=== PATIENT | male | born 1985 | race Caucasian/White ===

== ENCOUNTER → 2019-05-03 | Outpatient (CLI) | payer OTHER ==
[~2019-05-03] MED LIST: ATOM18CA PO; OMEP20TA63 PO; blood pressure med
--- NOTE | 2019-05-04 04:09 | PAIN ---
DATE OF SERVICE: 05/03/2019 INITIAL CONSULTATION FOR PAIN CLINIC CHIEF COMPLAINT: Low back and right lower extremity pain. HISTORY OF PRESENT ILLNESS: This is a 33-year-old male who presents with history of pain for many years, about 10 years or so or longer low back pain into the right lower extremity, on and off in intensity, but worse over the past year or so. The patient has been active in duty and reports this has exacerbated the pain, but no specific injury or action that he is aware of. He does train the dogs and handles them, some large, sometimes he reports they will jump on him and knock him down, etc. Over the years, this is becoming much worse in the low back and the lower extremities, especially on the right side. 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 The patient is taking tramadol, which he reports has not significantly decreased the pain. He reports the pain awakens him from sleep at least once or twice a night. It does not affect his bowel or bladder control, but does affect his ability to walk, with some significant fatigability with the right leg, but no loss of motor function. The patient reports the pain is constant, sharp, stabbing in the low back, shooting in the leg, radiating into the right leg, posterior gluteus, posterior thigh, posterior calf, also some aching and some tingling in the right foot, but also some tingling in the left foot. The patient reports no loss of motor function, but significant discomfort with change in positions, walking and standing. Disability rating from 0-10, 10 being the worst, the patient rates his disability as a 5 with family and home responsibilities, social activity and self-care; 7 with recreational activities and occupation and sexual behavior and 0 with life-support activities. The patient did have MRI scan from 2013, showing some degenerative changes and bulging of disk at L4-L5 and L5-S1. No further recent MRIs or diagnostic studies have been performed by his report. PAST MEDICAL HISTORY: Significant for hypertension, arthritis and gastroesophageal reflux. PAST SURGICAL HISTORY: Previous surgeries include foot surgery 3 months ago for left plantar fasciitis. Otherwise, no previous surgeries. CURRENT MEDICATIONS: Include Strattera and Prilosec. ALLERGIES: The patient has no known drug allergies. FAMILY HISTORY: Significant for no major medical problems or conditions that he lists. SOCIAL HISTORY: The patient drinks alcohol once or twice a month. He does not smoke. He does not use any illegal, illicit or recreational drugs. 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 REVIEW OF SYSTEMS: The patient's review of systems is positive for those items mentioned in the history of present illness. All systems reviewed and otherwise negative. It is complete, full and well documented on the patient's chart. PHYSICAL EXAMINATION: VITAL SIGNS: The patient's blood pressure is 144/95, pulse 88, respirations 16 and temperature is 98.1 degrees Fahrenheit. Height is 71 inches, weight is 230 pounds. GENERAL: The patient is awake, alert, oriented, appropriate, very pleasant demeanor. HEENT: Exam shows normocephalic, atraumatic. Extraocular movements are intact and symmetrical. Oral cavity: Mucous membranes are moist and pink. Dentition is intact. NECK: Shows anterior throat supple, without palpable lymphadenopathy noted. Swallow reflex is symmetrical. CHEST: Shows normal on inspection. Breath sounds are clear to auscultation bilaterally. HEART: Shows S1, S2 clear. No murmurs auscultated. ABDOMEN: Soft, nontender and nondistended. No palpable organomegaly is noted. No rebound or guarding demonstrated. BACK: Shows spine grossly in the midline. Normal-appearing thoracic kyphosis, cervical lordotic curvature and thoracic kyphotic curvature. Lumbar lordotic curvature is normal in appearance. With palpation, it shows some moderate tenderness diffusely in the lumbar paraspinous musculature, which is symmetrical on inspection. No trigger points, no radiation, no difficulty with deep palpation, but significant tenderness in the right greater than the left lower lumbar paraspinous muscles. No tenderness over the spinous processes, sacrum or sacroiliac regions. The patient has good rotational motion of the lumbar spine, both laterally greater than 10 degrees right and left as well as extension greater than 10 degrees, forward flexion 45 degrees, without significant difficulty or pain reported. EXTREMITIES: The patient's lower extremities show deep tendon reflexes 2+ in the patellar, 1+ tendo-calcaneus tendons. Motor exam is strong with 5/5 dorsiflexion, extension, quadriceps and hamstring flexion. Peripheral pulses are 1+ posterior tibia. No peripheral edema is noted. Gaenslen's and Vinod's maneuvers are negative bilaterally. He has a slight positive straight leg raise on the right, but only about 40-45 degrees, with decreased knee flexion; left side is negative. The patient is able to stand, stand on his toes without difficulty or loss of balance, walking with a normal-appearing gait. He does not appear to favor the right or left lower extremity significantly, not using any assistive devices to ambulate. SKIN: Shows warm and dry, good turgor. No edema. No sores, rashes or bruising. He does have some tattooing on the bilateral upper extremities. IMPRESSION: 1. This is a 33-year-old male with approximately 10-year history of low back and right lower extremity pain, worse over the past year. 2. Old MRI scan showing degenerative disk disease as noted. 3. Hypertension. 4. Arthritis. 5. Gastroesophageal reflux. PLAN: Options were discussed with the patient, including conservative medical management, physical therapies and interventional techniques. As he has done the physical therapies and is currently doing exercises, he would like to pursue interventional techniques. We discussed the lumbar epidural steroid injection using description as well as anatomical models to describe the procedure. He will first wait for preauthorization with his insurance provider. Meantime, we will continue with stretching and strengthening exercises. We will have him return to the clinic in approximately 1 week and plan on lumbar epidural steroid injection at that time. OLIVIER TIERNEY MD DR: BLAKE/alise JOB#: [id number] / [id number]
== END | disposition home or self-care (01) ==
LOC: PNCL 10:36
PROVIDERS: ATTEND Anesthesiology
DX: M54.5 Low back pain (principal); M79.604 Pain in right leg; I10 Essential (primary) hypertension; M19.90 Unspecified osteoarthritis, unspecified site; K21.9 Gastro-esophageal reflux disease without esophagitis; Z79.899 Other long term (current) drug therapy
CPT/HCPCS: G0463

== ENCOUNTER → 2019-05-15 | Outpatient (CLI) | payer OTHER ==
[~2019-05-15] MED LIST changes: +IOHEXOL 180 MG/ML 10 ML VIAL. ONE; +methylPREDNISolone ACETATE 40 MG/ML VIAL. ONE; +methylPREDNISolone ACETATE 80 MG/ML VIAL. ONE
--- NOTE | 2019-05-15 10:54 | PN ---
DATE: 05/15/2019 PROGRESS NOTE FOR PAIN CLINIC DIAGNOSES: Lumbar radiculopathy with lumbar degenerative disc disease. HISTORY OF PRESENT ILLNESS: The patient is a 33-year-old male who returns for followup status post initial evaluation and preauthorization for lumbar epidural steroid injection. The patient has obtained that and they would like to proceed. The patient reports no significant change, still pain in the low back as well as into the right lower extremity, posterior gluteus, posterior thigh and calf. The patient reports it is aching, sharp, tight, shooting, rated at 8 on a scale of 10, at its worst over the past week, 4 on average, 2 at its least and is at 4 today. The patient reports no new motor or sensory deficits, no new bowel or bladder incontinence and that has been waking him from sleep at night. PHYSICAL EXAMINATION: VITAL SIGNS: The patient's blood pressure 154/105, pulse 93, respirations 16, temperature is 98.0 degrees Fahrenheit, height is 71 inches and weight is 231 pounds. GENERAL: The patient is awake, alert, oriented, appropriate, very pleasant demeanor. HEENT: Shows normocephalic, atraumatic. Extraocular movements are intact and symmetrical. Oral cavity: Mucous membranes are moist and pink. Dentition is intact. NECK: Shows anterior throat supple without palpable lymphadenopathy noted. Swallow reflex is symmetrical. CHEST: Shows normal on inspection. Breath sounds are clear to auscultation bilaterally. HEART: Shows S1, S2 clear. No murmurs auscultated. ABDOMEN: Soft, nontender, nondistended. No palpable organomegaly is noted. No rebound or guarding demonstrated. BACK: Shows spine grossly in the midline. Normal appearing thoracic kyphosis and minor flattening of lumbar lordotic curvature. Lumbar paraspinous muscles shows symmetrical with palpation show some moderate tenderness bilaterally, but mild diffuse in the low lumbar distribution. The patient has good rotational motion of lumbar spine, both laterally as well as extension and flexion without difficulty. EXTREMITIES: Lower extremities show deep tendon reflexes 2+ in the patellar, 1+ in tendo-calcaneus tendons. Motor exam is strong with 5/5 dorsiflexion, extension, quadriceps and hamstring flexion. Peripheral pulses are 1+. No peripheral edema is noted bilaterally. ASSESSMENT AND PLAN: Options were discussed with the patient. The patient's old chart was reviewed as his current medication regimen updated. Current review of systems updated today as well. We will proceed with a lumbar epidural steroid injection today with fluoroscopic guidance. Risks were again discussed including, but not limited to bleeding, infection, possibility of epidural hematoma, subsequent neurological compromise, dural puncture, headaches, spinal cord and/or nerve damage, side effects of steroid medication and poor results regarding pain control. The patient understands and wished to proceed. The patient will return to clinic in approximately 2 weeks for followup. She was counseled on return appointment, activity level and side effects to be aware of. DIAGNOSIS: Lumbar radiculopathy with lumbar degenerative disc disease. PROCEDURE: Lumbar epidural steroid injection, translaminar approach at L5-S1 level using C-arm fluoroscopic guidance under sterile prep and drape using local anesthetic. MEDICATION INJECTED: A total of 120 mg Depo-Medrol plus 10 mL of preservative-free normal saline and 2 mL of contrast. CONDITION AT DISCHARGE: Stable. The patient tolerated the procedure well, had no complications. OLIVIER TIERNEY MD DR: BLAKE/alise JOB#: [id number] / [id number]
== END ==
LOC: PNCL 09:18
PROVIDERS: ATTEND Anesthesiology
DX: M51.16 Intervertebral disc disorders with radiculopathy, lumbar region (principal)
CPT/HCPCS: 62323; J1030; J1040; Q9965

== ENCOUNTER → 2019-05-29 | Outpatient (CLI) | payer OTHER ==
--- NOTE | 2019-05-29 20:32 | PAIN ---
DATE OF SERVICE: 05/29/2019 PROGRESS NOTE FOR PAIN CLINIC DIAGNOSIS: Lumbar radiculopathy with lumbar degenerative disk disease. HISTORY OF PRESENT ILLNESS: The patient is a 33-year-old male who returns for followup status post lumbar epidural steroid injection x 1. He did very well with about 70% improvement. The patient reports the pain is returning in the low back, right lower extremity, posterior gluteus, posterior thigh, posterior calf, aching, sharp, tight, tingling, stabbing, radiating, constant, becoming severe at times with weightbearing and activity. The patient reports it is better with sitting or lying down, does not awaken him from sleep at night. The patient reports pain over the past week, 8 on a scale of 10 at its worst, 3 on average, 1 at its least and is a 3 today. The patient reports no new motor or sensory deficits, no new bowel or bladder incontinence. He did very well after his first injection and would like to proceed with second one today. He has had preauthorization for that now and would like to proceed. The patient reports no new motor or sensory deficits, no new bowel or bladder incontinence or other complaints. PHYSICAL EXAMINATION: VITAL SIGNS: The patient's blood pressure is 154/100, pulse 98, respirations are 18, temperature 97.8 degrees Fahrenheit, height 71 inches, and weight is 233 pounds. GENERAL: The patient is awake, alert, oriented, appropriate, very pleasant demeanor. HEENT: Shows normocephalic, atraumatic. Extraocular movements are intact and symmetrical. Oral cavity, mucous membranes are moist and pink. Dentition is intact. NECK: Shows anterior throat supple without palpable lymphadenopathy noted. Swallow reflex symmetrical. CHEST: Shows normal on inspection. Breath sounds are clear to auscultation bilaterally. HEART: Shows S1, S2 clear. No murmurs auscultated. ABDOMEN: Soft, nontender, and nondistended. No palpable organomegaly is noted. There is no rebound or guarding demonstrated. BACK: Shows spine grossly in the midline. Normal appearing thoracic kyphosis and lumbar lordotic curvature. Lumbar paraspinous muscle shows symmetrical on inspection, on palpation shows some moderate tenderness diffusely bilaterally, going diffusely without radiation. EXTREMITIES: The patient's lower extremities show deep tendon reflexes at 2+ in the patellar, 1+ tendo-calcaneus tendons. Motor exam is strong with dorsiflexion, extension, quadriceps and hamstring flexion, symmetrical and equal at 5/5 bilaterally. Peripheral pulses are 1+ posterior tibia. No peripheral edema is noted bilaterally. Options were discussed with the patient. The patient's old chart was reviewed as was his current medication regimen updated. Current review of systems updated today as well. We will proceed with a second in the series of lumbar epidural steroid injection today with fluoroscopic guidance. Risks were again discussed including, but not limited to bleeding, infection, possibility of epidural hematoma, subsequent neurologic compromise, dural puncture, headaches, spinal cord and/or nerve damage, side effects of steroid medication and poor results regarding pain control. The patient understands and wished to proceed. The patient will return to clinic in approximately 2 weeks for followup. He was counseled on return appointment, activity level and side effects to be aware of. DIAGNOSIS: Lumbar radiculopathy with lumbar degenerative disk disease. PROCEDURE: Lumbar epidural steroid injection, translaminar approach L5-S1 level using C-arm fluoroscopic guidance under sterile prep and drape using local anesthetic. MEDICATION INJECTED: A total of 120 mg of Depo-Medrol plus 10 mL of preservative-free normal saline and 2 mL of contrast. CONDITION AT DISCHARGE: Stable. The patient tolerated procedure well, had no complications. OLIVIER TIERNEY MD DR: BLAKE/alise JOB#: [id number] / [id number]
== END ==
LOC: PNCL 10:00
PROVIDERS: ATTEND Anesthesiology
DX: M51.16 Intervertebral disc disorders with radiculopathy, lumbar region (principal)
CPT/HCPCS: 62323; J1030; J1040; Q9965

== ENCOUNTER → 2019-07-10 | Outpatient (CLI) | payer OTHER ==
[~2019-07-10] MED LIST changes: +AMLO2.5T5 PO; +HYDR12.575 PO; +METH18TA5 PO
--- NOTE | 2019-07-11 02:20 | PAIN ---
DATE OF SERVICE: 07/10/2019 PROGRESS NOTE FOR PAIN CLINIC DIAGNOSES: Lumbar radiculopathy with lumbar degenerative disk disease. HISTORY OF PRESENT ILLNESS: The patient is a 33-year-old male who returns for followup status post lumbar epidural steroid injection x 2. The patient reports about 90% improvement for the first 3-4 weeks after the last injection. The pain is now beginning to return, but still significantly improved. The patient was increasing his distance walking, doing work activities, household activities with much greater ease and comfort, traveling with greater ease. Starting to awaken him from sleep at night over the past few days, in the low back and right leg, posterior gluteus, posterior thigh and calf, occasionally, mostly in the back and the posterior gluteus. The patient reports it is aching, sharp, dull, tight, tingling, stabbing, radiating at times, constant when he is walking, standing, changing positions for more than about an hour or so on his feet. He notices the pain most noticeably better with sitting or lying down. The patient reports it is a 6 on a scale of 10 at its worst over the past week, 4 on average, 1 at its least and is at 4 today. The patient reports no new motor or sensory deficits, no new bowel or bladder incontinence or other complaints. PHYSICAL EXAMINATION: VITAL SIGNS: The patient's blood pressure is 144/99, pulse 91, respirations 16, temperature 97.6 degrees Fahrenheit, height is 71 inches and weight is 233 pounds. GENERAL: The patient is awake, alert, oriented, appropriate, very pleasant demeanor. HEENT: Shows normocephalic, atraumatic. Extraocular movements are intact and symmetrical. Oral cavity: Mucous membranes moist and pink. Dentition is intact. NECK: Shows anterior throat supple without palpable lymphadenopathy noted. Swallow reflex symmetrical. CHEST: Shows normal on inspection. Breath sounds are clear to auscultation bilaterally. HEART: Shows S1, S2 clear. No murmurs auscultated. ABDOMEN: Soft, nontender, nondistended. No palpable organomegaly is noted. No rebound or guarding demonstrated. BACK: Shows spine grossly in the midline. Normal appearing thoracic kyphosis and lumbar lordotic curvature. Lumbar paraspinous muscle shows symmetrical on inspection, with palpation shows some moderate tenderness diffusely, but only diffusely without significant radiation. EXTREMITIES: The patient's lower extremities show deep tendon reflexes at 2+ in the patellar, 1+ tendo-calcaneus tendons are equal. Motor exam is strong with 5/5 dorsiflexion, extension, quadriceps and hamstring flexion and symmetrical. Peripheral pulses are 1+ posterior tibial. No peripheral edema is noted bilaterally. Options were discussed with the patient. The patient's old chart was reviewed as his current medication regimen updated. Current review of systems updated today as well. We will proceed with a third in the series of lumbar epidural steroid injection today with fluoroscopic guidance. Risks were again discussed including, but not limited to bleeding, infection, possibility of epidural hematoma, subsequent neurological compromise, dural puncture, headaches, spinal cord and/or nerve damage, side effects of steroid medication and poor results regarding pain control. The patient understands and wished to proceed. The patient will return to the clinic in approximately 2 weeks for followup. She was counseled on return appointment, activity level and side effects to be aware of. DIAGNOSIS: Lumbar radiculopathy with lumbar degenerative disk disease. PROCEDURE: Lumbar epidural steroid injection, translaminar approach at the L5-S1 level using C-arm fluoroscopic guidance under sterile prep and drape using local anesthetic. MEDICATION INJECTED: A total of 120 mg Depo-Medrol plus 10 mL of preservative-free normal saline and 2 mL of contrast. CONDITION AT DISCHARGE: Stable. The patient tolerated the procedure well, had no complications. OLIVIER TIERNEY MD DR: BLAKE/alise JOB#: [id number] / [id number]
== END ==
LOC: PNCL 13:21
PROVIDERS: ATTEND Anesthesiology
DX: M51.16 Intervertebral disc disorders with radiculopathy, lumbar region (principal)
CPT/HCPCS: 62323; J1030; J1040; Q9965